=== PATIENT | female | born 1965 | race Two or more races ===

== ENCOUNTER → 2024-01-01 09:59 | Outpatient (REF) | payer BC, SELFPAY | LOC: HWWDC 09:59 | PROVIDERS: ATTENDING PHYSICIAN Family Medicine | DX: Z12.31 Encounter for screening mammogram for malignant neoplasm of breast (principal) | CPT/HCPCS: 77063; 77067 ==

== ENCOUNTER → 2024-05-04 08:15 | Outpatient (REF) | payer BC, SELFPAY | LOC: RCS 08:15 | PROVIDERS: ATTENDING PHYSICIAN Nurse Practitioner Primary Care | DX: R00.2 Palpitations (principal) | CPT/HCPCS: 93225; 93226 ==

== ENCOUNTER → 2024-05-12 07:58 | Outpatient (REF) | payer BC, SELFPAY | LOC: RAD 07:58 | PROVIDERS: ATTENDING PHYSICIAN Nurse Practitioner Primary Care; FAMILY PHYSICIAN Family Medicine | DX: R10.11 Right upper quadrant pain (principal); K21.9 Gastro-esophageal reflux disease without esophagitis; E78.2 Mixed hyperlipidemia; R07.89 Other chest pain | CPT/HCPCS: 76700; 93306 ==

== ENCOUNTER → 2024-05-30 17:11 | Outpatient (REF) | payer BC, SELFPAY | LOC: RAD 17:11 | PROVIDERS: ATTENDING PHYSICIAN Family Medicine | DX: R10.11 Right upper quadrant pain (principal); R93.89 Abnormal findings on diagnostic imaging of other specified body structures | CPT/HCPCS: 74177; Q9967 ==

== ENCOUNTER → 2024-06-22 13:03 | Outpatient (REF) | payer BC, SELFPAY | LOC: RAD 13:03 | PROVIDERS: ATTENDING PHYSICIAN Obstetrics & Gynecology Gynecology; FAMILY PHYSICIAN Family Medicine | DX: R93.89 Abnormal findings on diagnostic imaging of other specified body structures (principal) | CPT/HCPCS: 76830; 76856 ==

== ENCOUNTER → 2024-07-01 11:23 | Outpatient (REF) | payer BC, SELFPAY | LOC: RAD 11:23 | PROVIDERS: ATTENDING PHYSICIAN Obstetrics & Gynecology Gynecology; FAMILY PHYSICIAN Family Medicine | DX: Z13.820 Encounter for screening for osteoporosis (principal); Z82.62 Family history of osteoporosis | CPT/HCPCS: 77080 ==

== ENCOUNTER → 2024-09-15 12:51 | Outpatient (REF) | payer BC, SELFPAY | LOC: PAVMRI 12:51 | PROVIDERS: ATTENDING PHYSICIAN Family Medicine | DX: R93.5 Abnormal findings on diagnostic imaging of other abdominal regions, including retroperitoneum (principal); K82.8 Other specified diseases of gallbladder; R10.11 Right upper quadrant pain | CPT/HCPCS: 74183; A9575 ==